=== PATIENT | male | born 1985 | race Caucasian/White ===

== ENCOUNTER 2018-12-29 07:17 | Emergency (ER) | payer OTHER ==
[~2018-12-29] VITALS: Ht 175.3 cm; Wt 108.9 kg
[~2018-12-29 07:17] MED LIST: AMOXICILLIN 50500 M1 PO; AMOXICILLIN 50500 MG PO; NOHOMEMEDICATIONS; ONDANSETRON HCL4 M2 PO
[2018-12-29 07:18] VITALS: BP 138/92
[2018-12-29] MEDS ORDERED: MEDROLDOSEPACK PO (07:46)
[2018-12-29] MEDS ORDERED: NORFLEX100 MG PO (07:46)
[2018-12-29] MEDS ORDERED: NAPROSYN500 MG PO (07:46)
== END 2018-12-29 08:10 | disposition home or self-care (01) ==
LOC: ER 07:17
DX: S39.012A Strain of muscle, fascia and tendon of lower back, initial encounter (principal); X50.1XXA Overexertion from prolonged static or awkward postures, initial encounter; Y93.89 Activity, other specified; Y92.89 Other specified places as the place of occurrence of the external cause; Y99.8 Other external cause status